=== PATIENT | female | born 1960 | race Caucasian/White ===

== ENCOUNTER 2020-11-09 06:05 | Day surgery (SDC) | payer BC ==
[2020-11-08 12:42] LABS: BASOPHILS % (AUTO) 0.8 % (0-1); EOSINOPHILS # (AUTO) 0.2 X10'3 (0-0.9); EOSINOPHILS % (AUTO) 3.3 % (0-6); LYMPHOCYTES % (AUTO) 34.5 % (21-51); MEAN CORPUSCULAR HGB CONC 33.7 g/dL (33.0-36.5); MEAN CORPUSCULAR VOLUME 89.1 FL (78-98); MEAN PLATELET VOLUME 7.8 FL (7.4-10.4); MONOCYTES # (AUTO) 0.4 X10'3 (0-0.9); NEUTROPHILS # (AUTO) 3.2 X10'3 (1.8-7.7); NEUTROPHILS % (AUTO) 54.4 % (42-75); PRE OP HEMATOCRIT 43.7 % (35.0-45.0); PRE OP HEMOGLOBIN 14.7 g/dL (12.0-16.0); PRE OP PLATELET COUNT 265 X10'3 (140-440); RED CELL DISTRIBUTION WIDTH 13.3 % (11.5-14.5)
[2020-11-08 12:55] LABS: PRE OP INR 1.1 INR; PRE OP PROTIME 11.3 SECONDS (9.0-12.0)
[2020-11-08 12:57] LABS: ALBUMIN 3.8 G/DL (3.4-5.0); ALBUMIN/GLOBULIN RATIO 1.2 (1.1-1.5); ALKALINE PHOSPHATASE 80 IU/L (46-116); BLOOD UREA NITROGEN 12 MG/DL (7-18); BUN/CREATININE RATIO 15.8 (6.6-38.0); CALCIUM 8.5 MG/DL (8.5-10.1); CHLORIDE 109 MMOL/L (99-107); CREATININE 0.76 MG/DL (0.40-0.90); PRE OP ALT 17 U/L (30-65); PRE OP ANION GAP 8 (8-16); PRE OP AST 16 U/L (10-37); PRE OP BILIRUB, TOTAL 0.6 MG/DL (0.0-1.0); PRE OP GLUCOSE 86 MG/DL (70-104); PRE OP SODIUM 144 MMOL/L (135-145); TOTAL CARBON DIOXIDE 27.2 MMOL/L (24-32); TOTAL PROTEIN 7.1 G/DL (6.4-8.2); eGFR 78 ML/MIN
[~2020-11-09] VITALS: Ht 175.3 cm; Wt 82.9 kg
[2020-11-09] VITALS (13 sets, daily range): BP systolic 104–133; BP diastolic 58–69
[~2020-11-09 06:05] MED LIST: CHOL10006 PO; MULT-1085 PO; OMEG-79 PO; VITA80008 PO; diazepam 5mg tablet PO PRN; famotidine 20mg tablet PO ONE; oxymetazoline 15 ML nasal spray NS SCH; ringers solution, lacted 1,000 ML IV SCH
[2020-11-09] MEDS ORDERED: cocaine 4% topical solution 4ml bottle ONE (06:42)
[2020-11-09] MEDS ORDERED: LIDOcaine 1% W/epiNEPHrine 1:100,000 20ml vial ONE (06:43)
[2020-11-09] MEDS ORDERED: mupirocin 2% ointment 22GM ONE (06:43)
[2020-11-09] MEDS ORDERED: ceFAZolin 1000mg inj ONE ×2 (06:43→08:18)
[2020-11-09] MEDS ORDERED: oxymetazoline 15 ML nasal spray NS ONE (06:43)
[2020-11-09] MEDS ORDERED: fentaNYL/PF 50MCG/1 ML 2ML syringe ONE (08:00)
[2020-11-09] MEDS ORDERED: propofol inj 20 ML IV ONE (08:00)
[2020-11-09] MEDS ORDERED: midazolam 1 mg/ML 2ml injection ONE (08:00)
[2020-11-09] MEDS ORDERED: sevoflurane 250ml liquid IH ONE (08:02)
[2020-11-09] MEDS ORDERED: meperidine/PF 25mg/ml syringe IV PRN ×3 (08:40)
[2020-11-09] MEDS ORDERED: proCHLORperazine 10 MG/2 ml inj IV PRN (08:40)
[2020-11-09] MEDS ORDERED: ringers solution, lacted 1,000 ML IV SCH (08:40)
[2020-11-09] MEDS ORDERED: ondansetron/PF 4mg/2ml inj IV PRN (08:40)
[2020-11-09] MEDS ORDERED: morphine 4 MG/ML inj SYRINge IV PRN (08:40)
[2020-11-09] MEDS ORDERED: morphine 2 MG/ML inj. syringe IV PRN (08:40)
[2020-11-09] MEDS ORDERED: ondansetron/PF 4mg/2ml inj ONE (08:58)
[2020-11-09] MEDS ORDERED: dexamethasone sod phosphate 4mg/ml inj. ONE (08:58)
--- NOTE | 2020-11-09 09:25 | NUR ---
ADMITTED TO PACU FROM OR ACCOMPANIED BY ANESTHESIA. INTIAL PHYSICAL ASSESSMENT DONE AND RECORDED. REPORT RECEIVED FROM ANESTHESIA.
[2020-11-09] MEDS ORDERED: salt irrigation nasal spray 45 ML SPRAY NS PRN (09:35)
[2020-11-09] MEDS ORDERED: HYDROcodone/acetaminophen 5mg/325mg tablet PO ONE (10:45)
--- NOTE | 2020-11-09 11:30 | NUR ---
DISCHARGE CRITERIA MET, DISCHARGE INSTRUCTIONS GIVEN, DEMONSTRATES VERBAL UNDERSTANDING. DISCHARGED HOME IN GOOD CONDITION.
== END 2020-11-09 11:30 | disposition home or self-care (01) ==
LOC: PAS 06:05
PROVIDERS: ATTEND Otolaryngology
DX: J34.2 Deviated nasal septum (principal); D18.09 Hemangioma of other sites; R04.0 Epistaxis; Z98.890 Other specified postprocedural states; Z90.49 Acquired absence of other specified parts of digestive tract; Z79.899 Other long term (current) drug therapy
CPT/HCPCS: 30520; 36415; 80053; 82948; 85025; 85576; 85610; 85730; A6402; C9250; J0690; J1100; J2250; J2405; J2704; J3010; J7120; A4618; A7000